=== PATIENT | female | born 1975 | race Caucasian/White ===

== ENCOUNTER 2019-04-29 11:31 | Day surgery (SDC) | payer BC ==
[2019-04-29 09:32] LABS: Absolute Lymphocytes (CBC) 1.6 K/uL (0.7-4.9); Hematocrit 39.5 % (36.0-45.0); MPV 8.5 fL (7.6-11.3); RBC Red Blood Cell Count 4.28 M/uL (3.86-4.86)
[2019-04-29 09:52] LABS: ALT/SGPT 17 U/L (12-78); AST/SGOT 14 U/L (15-37); Alkaline Phosphatase 59 U/L (45-117); Amylase Level 35 U/L (25-115); BUN Blood Urea Nitrogen 8 mg/dL (7-18); Bicarbonate 29 mmol/L (21-32); Bilirubin Direct 0.1 mg/dL (0-0.2); Bilirubin Total 0.4 mg/dL (0.2-1.0); Glucose Level 89 mg/dL (74-106); Lipase 87 U/L (73-393); Protein, Total 7.4 g/dL (6.4-8.2); Sodium Level 141 mmol/L (136-145)
--- NOTE | 2019-04-29 10:03 | EKG ---
Test Date: 2019-04-29 Test Time: 08:48:33 House Visitor: BUDDY MEASUREMENT RESULTS: Intervals: Rate: 58 [place]: 140 QRSD: 76 QT: 448 QTc: 439 [place]: P: 43 [place]: 140 QRS: 15 T: 9 INTERPRETIVE STATEMENTS: Sinus bradycardia Otherwise normal ECG Compared to ECG 06/21/2012 17:21:42 Sinus rhythm no longer present Electronically Signed On 04-29-19 10:02:40 MOPHEAD TRIMMER AND WRAPPER by Jacky Plascencia
--- NOTE | 2019-04-29 10:44 | RAD REPORT ---
EXAM DESCRIPTION: RAD - Chest Pa And Lat (2 Views) - 04/29/2019 9:05 am CLINICAL HISTORY: preop Chest pain. COMPARISON: Chest Pa And Lat (2 Views) dated 10/20/2015; Abdomen 1 View (KUB) dated 08/25/2015; CHEST PA AND LAT 2 VIEW dated 06/26/2014; CHEST SINGLE VIEW dated 06/21/2012 FINDINGS: Calcified nodule is seen in the right upper lobe, demonstrating long-term stability. The l ungs are otherwise clear. The heart is normal in size. No displaced fractures. IMPRESSION: No acute or concerning finding suspected.
[~2019-04-29 11:31] MED LIST: CEFOXITIN/SWI 1gm 1 GM/10 ML SYR ONE; Ringers Lactate 1,000 ML IV ONE
--- OUTSIDE RECORDS SUMMARY | 2019-04-29 11:35 | XMS REPORT ---
:1975 Author Organization e[employer]Works Care Team Providers Name Role Phone Eder Dalyh Provider Role Unavailable Allergies, Adverse Reactions, Alerts Substance Reaction Event Type Belviq Info Not Available Drug Allergy Zofran ODT Info Not Available Drug Allergy Problems Problem Type Condition Code Onset Dates Condition Status Problem Iron deficiency E61.1 Active Problem Constipation, chronic K59.09 Active Problem Adult BMI 30.0-30.9 kg/sq m Z68.30 Active Problem Anxiety F41.9 Active Problem Insomnia G47.00 Active Problem Vitamin B12 deficiency E53.8 Active Problem Benign essential tremor G25.0 Active Problem BMI 31.0-31.9,adult Z68.31 Active Problem Migraine G43.909 Active Problem Gastroesophageal reflux disease K21.9 Active Assessment Vitamin B12 deficiency E53.8 Active Assessment Anxiety F41.9 Active Assessment GERD without esophagitis K21.9 Active Assessment Adult BMI 30.0-30.9 kg/sq m Z68.30 Active Assessment Benign essential tremor G25.0 Active Assessment Migraine G43.909 Active Assessment Iron deficiency E61.1 Active Assessment Insomnia G47.00 Active Assessment Constipation, chronic K59.09 Active Medications Medication Code Code Instructions Start End Status Dosage System Date Date Multivitamin Adult [facility] 66794939998 - Orally Active not defined Iron (Ferrous [facility] 79135462327 142 (45 Fe) MG Active 1 tablet Sulfate) Orally Once a day Linzess [facility] 70244013689 290 mcg oral Active as once a day directed Cyclobenzaprine [facility] 01760916995 10 MG Active TAKE 1 HCl TABLET BY MOUTH TWICE A DAY NEEDED FOR MUSCLE SPASM Pantoprazole [facility] 89820449058 40 MG Orally Active 1 tablet Sodium Once a day Maxalt [facility] 92273679920 10 MG Orally Active 1 tablet Once a day PRN as needed SEVERE GOMEZ one time Propranolol HCl [facility] 66692979162 20 MG Orally Active 1 tablet Twice a day Ambien [facility] 22480198300 10 MG Orally Active 1 tablet Once a day at bedtime as needed Maxalt [facility] 84618575392 10 MG Orally Active 1 tablet Once a day PRN as needed SEVERE GOMEZ one time HydrOXYzine [facility] 31743579350 50 MG Orally Apr 23, Active 1 capsule Pamoate every 6 hrs PRN 2018 as needed FOR ITCHING Results No Known Results Summary Purpose eClinicalWorks Submission
--- OUTSIDE RECORDS SUMMARY | 2019-04-29 11:36 | XMS REPORT ---
:1975 Author Organization [employer] Care Team Providers Name Role Phone David Daly Provider Role Unavailable Allergies No Known Allergies Problems Problem Type Condition Code Onset Dates Condition Status Problem Iron deficiency E61.1 Active Problem Constipation, chronic K59.09 Active Problem Adult BMI 30.0-30.9 kg/sq m Z68.30 Active Problem Anxiety F41.9 Active Problem Insomnia G47.00 Active Problem Vitamin B12 deficiency E53.8 Active Problem Benign essential tremor G25.0 Active Problem BMI 31.0-31.9,adult Z68.31 Active Problem Migraine G43.909 Active Problem Gastroesophageal reflux disease K21.9 Active Medications No Known Medications Results No Known Results Summary Purpose eClinicalWorks Submission
--- OUTSIDE RECORDS SUMMARY | 2019-04-29 11:36 | XMS REPORT ---
[...] BMI 30.0-30.9 kg/sq m Z68.30 Active Assessment History of calculus of gallbladder Z87.19 Active Assessment Gallbladder sludge K82.8 Active Assessment RUQ abdominal pain R10.11 Active Problem Anxiety F41.9 Active Problem Insomnia G47.00 Active Problem Vitamin B12 deficiency E53.8 Active Problem Benign essential tremor G25.0 Active Problem BMI 31.0-31.9,adult Z68.31 Active Problem Migraine G43.909 Active Problem Gastroesophageal reflux disease K21.9 Active Medications Medication Code Code Instructions Start End Status Dosage System Date Date Multivitamin Adult [facility] 04715927470 - Orally Active not defined HydrOXYzine [facility] 51082939668 50 MG Orally Apr 23, Active 1 capsule Pamoate every 6 hrs PRN 2017 as needed FOR ITCHING Pantoprazole [facility] 53619531297 40 MG Orally Active 1 tablet Sodium Once a day Propranolol HCl [facility] 32600861518 20 MG Orally Active 1 tablet Twice a day Ambien [facility] 31408883394 10 MG Orally Active 1 tablet Once a day at bedtime as needed Iron (Ferrous [facility] 23877495745 142 (45 Fe) MG Active 1 tablet Sulfate) Orally Once a day Linzess [facility] 86170752499 290 mcg oral Active as once a day directed Maxalt [facility] 75428755451 10 MG Orally Active 1 tablet Once a day PRN as needed SEVERE GOMEZ one time Cyclobenzaprine [facility] 15869535852 10 MG Active TAKE 1 HCl TABLET BY MOUTH TWICE A DAY NEEDED FOR MUSCLE SPASM Maxalt [facility] 86067323746 10 MG Orally Active 1 tablet Once a day PRN as needed SEVERE GOMEZ one time Results No Known Results Summary Purpose eClinicalWorks Submission
[2019-04-29] MEDS ORDERED: MIDAZOLAM HCL 2 MG/2 ML INJ ONE (12:06)
[2019-04-29] MEDS ORDERED: PROPOFOL 200 MG/20 ML VIAL IV ONE (12:06)
[2019-04-29] MEDS ORDERED: FENTANYL CITR 100 MCG/2 ML ONE (12:06)
[2019-04-29] MEDS ORDERED: ROCURONIUM 50 MG/5 ML VIAL IV ONE (12:06)
[2019-04-29] MEDS ORDERED: LIDOCAINE 1% MPF 5 ML VIAL ONE (12:06)
[2019-04-29] MEDS ORDERED: dexAMETHasone 10 MG/ML VIAL ONE (13:04)
[2019-04-29] MEDS ORDERED: ONDANSETRON 4 MG/2 ML VIAL ONE (13:26)
[2019-04-29] MEDS ORDERED: NEOSTIGMINE 1 MG/ML -10 ML VIAL ONE (13:26)
[2019-04-29] MEDS ORDERED: KETOROLAC 30 MG/ML INJ ONE (13:26)
[2019-04-29] MEDS ORDERED: GLYCOPYRROLATE 0.2 MG/ML SYR ONE (13:26)
[2019-04-29] MEDS ORDERED: MEPERIDINE HCL 25 MG/0.5 ML ONE ×2 (13:33→14:18)
[2019-04-29] MEDS ORDERED: Mastisol Adhesive Liq ONE (13:37)
[2019-04-29] MEDS ORDERED: PROMETHAZINE 25 MG/ML VIAL ONE (13:54)
[2019-04-29] MEDS: HYDROMORPHONE HCL 1 MG/ML INJ ONE ×2 (13:54→14:13)
--- NOTE | 2019-04-29 13:54 | P.BOP ---
Preoperative diagnosis: acute cholecystitis, symptomatic cholelithiasis, hx of gastric bypass Postoperative diagnosis: same Primary procedure: Laparoscopic cholecystectomy Industrial Sociologist: JOE NAVARRO (FREELANCE TRANSLATOR) Estimated blood loss: <10cc Specimen: gb Findings: as above Anesthesia: General Complications: None Transferred to: Recovery Room Condition: Good
[2019-04-29] MEDS ORDERED: PANTOPRAZOLE 40 MG INJ IVP ONE (13:59)
[2019-04-29] MEDS ORDERED: SODIUM CHLORIDE 0.9% 10ML INJ IV PRN (13:59)
[2019-04-29] MEDS ORDERED: METOCLOPRAMIDE 10 MG/2mL INJ ONE (14:05)
[2019-04-29] MEDS ORDERED: CODEINE 30MG/APAP 300MG TAB ONE (14:48)
[2019-04-29 14:58] VITALS: TEMP 97.8; O2SAT 99
[2019-04-29 15:25] VITALS: BP 118/56
--- NOTE | 2019-04-30 01:00 | OP ---
Date of Procedure: 04/29/2019 Surgeon: Manpreet Cristina MD Auto Rebuilder: Yessi Miller. Preoperative Diagnoses: Acute cholecystitis, symptomatic cholelithiasis, Corrine-en-Y gastric bypass. Postoperative Diagnoses: Acute cholecystitis, symptomatic cholelithiasis, Corrine-en-Y gastric bypass. Procedure: Laparoscopic cholecystectomy. Estimated Blood Loss: Less than 10 mL. Anesthesia: General plus local. Indications: This is a case of a 43-year-old patient with history of acute cholecystitis and symptom atic cholelithiasis, with history of Corrine-en-Y gastric bypass, history also of abdominoplasty ___ laparoscopic versus open cholecystectomy with benefits, alternatives, and risks including but not limited to infection, bleeding, damage to adjacent structures, anesthesia complication, choledocholi thiasis, bile leak, pancreatitis, NM, and even . She also understands this may not relieve her symptoms. She may need more than one surgical intervention. She understood, signed a consent. Description Of Procedure: Patient was brought to the operating room, placed in supine position. Ane sthesia was done without complication. A time-out was called. Abdomen was prepped and draped in a s terile fashion. We used the previous incision she has for the umbilical abdominoplasty, and make a s mall incision in that area. Making sure, we without crushing them. We found the fascia, which was opened under direct vision. Peritoneum was encountered, opened under direct vision. Vicry l #1 placed inside of the fascia. Avinash trocar was carefully introduced. No bleeding was obtained. I placed 3 more trocars, 5 mm in each one of them, in the right upper quadrant under direct visuali zation. This allowed me to put a grasper in the fundus of the gallbladder. Some adhesions of the ga llbladder were removed and then we were able to find the infundibulum and retract the gallbladder in the inferolateral fashion exposing the triangle of Calot, obtaining critical view of safety. The cys tic duct and cystic artery were clearly isolated and free circumferentially and a connection between those and the gallbladder was clearly identified. I proceeded to ligate those by using at least 3 cl ips proximal, 1 clip distal, ligation in the middle. Same was done with the cystic artery. No bile leak. No bleeding. The gallbladder was removed from the liver using Bovie cauterizer and removed fr om abdominal cavity using an EndoCatch through the umbilical incision. The area was inspected once a gain. No bile leak. No bleeding. Clips were intact. At that moment, I proceeded to remove the tro cars under direct vision. Deflated the pneumoperitoneum. Closed the fascia with #1 Vicryl, irrigate d subcutaneous tissue, closed that with 3-0 chromic and the skin with 3-0 chromic in a subcuticular f ashion with Steri-Strips on top. Sponge count and instrument counts were correct. Patient tolerated the procedure well. Patient was sent to recovery in stable condition. Disposition: Home. Activity: As tolerated. No heavy lifting. Followup: Follow up in my office in 1 week. Call for appointment [phone]. Keep the area dry for 4 8 hours, then may shower. Keep Steri-Strip intact. Medications: Tylenol No. 3 q.4 hours p.r.n. pain and Bactrim DS p.o. b.i.d. RENEE/SHERYL Voice ID: [id number] Report ID: [id number]
== END 2019-04-29 15:28 | disposition home or self-care (01) ==
LOC: OR 11:31
PROVIDERS: ATTEND Surgery
PROC: 0FT44ZZ Resection of Gallbladder, Percutaneous Endoscopic Approach (ICD-10-PCS; principal; 2019-04-29 13:15)
DX: K80.12 Calculus of gallbladder with acute and chronic cholecystitis without obstruction (principal); K21.9 Gastro-esophageal reflux disease without esophagitis; Z98.84 Bariatric surgery status; Z88.8 Allergy status to other drugs, medicaments and biological substances
CPT/HCPCS: 93005; 85025; 80048; 36415; 82150; 84703; 80076; 88304; 83690; 71046; 47562; J2704; J2710; J2765; J2550; C9113; J2250; J3010; J1100; J2175 ×2; J1170; J7120; J2405